=== PATIENT | male | born 1955 | race Caucasian/White ===

== ENCOUNTER → 2017-07-24 12:38 | Outpatient (CLI) | payer OTHER, SELFPAY | PROVIDERS: PCP Family Medicine; Visit Provider Family Medicine | DX: K21.9 Gastro-esophageal reflux disease without esophagitis (principal); Z53.8 Procedure and treatment not carried out for other reasons ==

== ENCOUNTER → 2017-07-25 07:48 | Outpatient (CLI) | payer OTHER, SELFPAY ==
--- NOTE | 2017-07-25 | DI.RAD.S_ITS ---
PROCEDURE: FL UPPER GI W AIR INDICATIONS: Reflux COMPARISON: [facility], , UPPER GI AIR CONTRAST WITH KUB, 12/19/2008, 8:58. 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 No suspicious abdominal calcifications. Visualized solid organ contours appear normal. Bony structures appear unremarkable. Esophagus: Esophageal mucosa is normal on air-contrast views. On single-contrast views, there is normal esophageal peristalsis. No strictures, extrinsic mass effects, or diverticula. Slight sliding hiatal hernia was identified and there was only a slight degree of elicited gastroesophageal reflux. Stomach: The stomach is normally distensible, with normal rugal fold thickness. No mucosal masses or ulcers. Pylorus and duodenal bulb appear normal in morphology. Duodenal folds are normal in thickness as well. IMPRESSION: Slight sliding hiatal hernia with a very small associated amount of gastroesophageal reflux. No mass or stricture found, no esophageal dysmotility identified. Dictated by: Bull Perez M.D. on 07/25/2017 at 9:12 Approved by: Bull Perez M.D. on 07/25/2017 at 9:13
== END ==
PROVIDERS: PCP Family Medicine; Visit Provider Family Medicine
DX: K21.9 Gastro-esophageal reflux disease without esophagitis (principal); K44.9 Diaphragmatic hernia without obstruction or gangrene
CPT/HCPCS: 74247

== ENCOUNTER 2018-12-24 12:49 | Day surgery (SDC) | payer OTHER, SELFPAY ==
--- NOTE | 2018-12-24 | PATH_ITS ---
[facility] Accession Number: [id number] . 01 Material submitted: . colon - DESCENDING COLON POLYP BIOPSY 6MM . 02 Diagnosis: Descending Colon Polyp, 6 mm, Biopsy: Tubular adenoma. MRV 12/25/2018 1546 Local . 02 Electronically signed: . Randy Townsend MD, PhD, Pathologist NPI- [id number] . 01 Gross description: . DESCENDING COLON POLYP BIOPSY 6MM: Received in formalin is 1 fragment(s) of anthony, soft tissue measuring 0.3 x 0.3 x 0.2 cm which is entirely submitted and submitted entirely in 1 cassette(s) /[facility] 12/25/2018 0026 Local . 02 Pathologist provided ICD-10: D12.4 . 02 CPT . 379783 Performed at: 01 [facility] [address] [id number] MD Kashif Manuel MD Phone: [phone] Performed at: [address] [facility] [address] [place], [place] [id number] MD Waleska Blackwell MD Phone: [phone]
[2018-12-24 13:07] VITALS: BP 147/90; PULSE 76; RESP 18; TEMP 36.2; O2SAT 98; BMI 24.3
[2018-12-24] MEDS: SODIUM CHLORIDE 0.9% 1,000 ML 200 ML IV (13:24)
--- NOTE | 2018-12-24 13:57 | PM.PREOP ---
Pre-operative Note Interval Note History & Physical reviewed/Exam performed by Physician: Yes Changes to H&P: No ASA Class (for procedural sedation): II
--- NOTE | 2018-12-24 13:57 | PM.OP.ENDO ---
Operative Date/Time/Diagnoses Date of procedure: 12/24/18 Time of procedure: 13:57 Pre-op diagnosis: 1. Screening for colon cancer Post-op diagnosis: other (Descending polyp x1, 6 mm, removed with cold biopsy forceps, minor diverticulosis) Procedure & Clinicians Study performed: Colonoscopy Same procedure as scheduled: Yes Indications: 1. Screening for colon cancer Surgeon: Noemi Blancas Procedure Notes SCOAP/Timeout: 14:11 Procedure in detail: ENDOSCOPIST: Noemi Blancas MD Sedation RN: Juan Carlos Bell RN Sedation start time: 14:12 Sedation end time: 14:52 PROCEDURE: Colonoscopy with biopsy INDICATIONS: 1. Screening for colon cancer MEDICATION: Levsin 0.125 mg sublingual, incremental doses of Versed and fentanyl until appropriate level sedation achieved. ASA CLASS: 2 CECAL WITHDRAWAL TIME: 18 minutes COMPLICATIONS: None. EXTENT OF PROCEDURE: Cecum. QUALITY OF PREP: Good with portions of liquid stool. PROCEDURE: Prior to insertion of the colonoscope, a digital rectal examination was accomplished with circumferential palpation of the distal rectal mucosa without significant findings being noted. The high-definition colonoscope was passed into the rectum in the usual fashion and advanced over to the cecum without difficulty. The ileocecal valve, appendiceal stoma, and medial wall all could be inspected and no abnormalities were seen. ASCENDING COLON: As the colonoscope was withdrawn, care was taken to expose and inspect the haustral folds and no abnormalities were seen. HEPATIC FLEXURE: Normal no polyps, diverticula or other abnormalities. TRANSVERSE COLON: Normal no polyps, diverticula or other abnormalities. DESCENDING COLON: A 6 mm polyp was seen and removed with cold biopsy forceps, excellent hemostasis. Very minor diverticulosis. Otherwise, no other abnormalities. SIGMOID COLON: Minor diverticulosis, otherwise normal, no polyps or other abnormalities. RECTUM: Normal. J maneuver was produced. There was no significant perianal disease. The J maneuver was broken. The remainder of the rectum was inspected and there was no external hemorrhoid disease. The scope was withdrawn. IMPRESSION: 1. Descending polyp x1, 6 mm, removed with cold biopsy forceps 2. Minor diverticulosis, left-sided PLAN: 1. Follow-up in clinic status post pathology results. The possibility of a missed lesion including a malignancy has been discussed with the patient previously. Potential alarm symptoms have been discussed and should be reported immediately. Scope withdrawal time: 18 Sedation minutes: 40 Findings: diverticulosis and polyp Specimen(s): other Complications: none Impression: As above. Post-procedure Recommendations: Will call with biopsy results Follow up: weeks (2) Disposition: PACU
[2018-12-24] MEDS: HYOSCYAMINE 0.125 MG TABLET PO (14:10)
[2018-12-24] MEDS: MIDAZOLAM 5 MG/5 ML VIAL 10 MG IV (14:35)
[2018-12-24] MEDS: fentaNYL 250 MCG/5 ML INJ IV (14:36)
[2018-12-24 14:59] VITALS: BP 122/83; PULSE 77; RESP 12; TEMP 36.5; O2SAT 96
[2018-12-24 15:04] VITALS: BP 137/84; PULSE 74; RESP 18; O2SAT 96
[2018-12-24 15:09] VITALS: BP 120/91; PULSE 75; RESP 16; O2SAT 98
[2018-12-24 15:14] VITALS: BP 127/87; PULSE 76; RESP 15; O2SAT 95
[2018-12-24 15:21] VITALS: BP 124/79; PULSE 68; RESP 16; TEMP 36.4; O2SAT 98
== END 2018-12-24 15:56 | disposition home or self-care (01) ==
PROVIDERS: PCP Family Medicine; Visit Provider Student in an Organized Health Care Education/Training Program
PROC: 0DJD8ZZ Inspection of Lower Intestinal Tract, Via Natural or Artificial Opening Endoscopic (ICD-10-PCS; CPT 45378; principal; 2018-12-24 14:00)
DX: Z12.11 Encounter for screening for malignant neoplasm of colon (principal); D12.4 Benign neoplasm of descending colon; K57.30 Diverticulosis of large intestine without perforation or abscess without bleeding
CPT/HCPCS: 45380; J2250; J3010

== ENCOUNTER → 2019-09-05 09:21 | Outpatient (CLI) | payer OTHER, SELFPAY ==
[2019-09-05 10:11] LABS: Add Manual Diff / Slide Review NO; Basophils Absolute Auto 100 /uL (0-100); Basophils Percent Auto 1.7 % (0-2); Eosinophils Absolute Auto 100 /uL (0-450); Eosinophils Percent Auto 2.5 % (2-4); Hematocrit 48.2 % (41-53); Hemoglobin 16.2 g/dL (13.5-17.5); Lymphocytes Absolute Auto 900 /uL (1100-4500); Lymphocytes Percent Auto 19.8 % (25-40); Mean Corpuscular HGB Conc 33.7 % (30-36); Mean Corpuscular Hemoglobin 30.6 PG (26-34); Mean Corpuscular Volume 90.8 fL (80-100); Monocytes Absolute Auto 600 /uL (0-900); Neutrophils Absolute Auto 2800 /uL (1500-7000); Platelet Count 219 X10^3/uL (150-400); Red Cell Distribution Width 14.4 % (11.6-14.8); White Blood Cell Count 4.4 X10^3/uL (4.5-11.0)
[2019-09-05 10:27] LABS: Alanine Aminotransferase 12 IU/L (<50); Albumin 4.2 g/dL (3.5-5.0); Albumin Globulin Ratio 1.9 (1.0-2.8); Alkaline Phosphatase 46 U/L (38-126); Aspartate Aminotransferase 26 IU/L (17-59); BUN Creatinine Ratio 15.4 (6-22); Bilirubin Total 0.8 mg/dL (0.2-1.3); Blood Urea Nitrogen 19 mg/dL (9-20); Calcium 10.3 mg/dL (8.4-10.2); Carbon Dioxide 32 mmol/L (22-32); Chloride 100 mmol/L (98-107); Cholesterol 216 mg/dL (140-199); Estimated Glomerular Filt Rate 59.4 mL/min (>60); Globulin 2.2 g/dL (1.7-4.1); Glucose 77 mg/dL (80-110); HDL Cholesterol 80 mg/dL (40-60); HEMOLYSIS < 15 (0-50); LDL Cholesterol Calculated 125 mg/dL (<100); Potassium 4.7 mmol/L (3.4-5.1); Sodium 137 mmol/L (137-145); Total Protein 6.4 g/dL (6.3-8.2); Triglycerides 54 mg/dL (35-150)
== END ==
PROVIDERS: PCP Family Medicine; Referring Provider Family Medicine; Visit Provider Family Medicine
DX: I10 Essential (primary) hypertension (principal); G35 Multiple sclerosis; Z79.899 Other long term (current) drug therapy
CPT/HCPCS: 36415; 80053; 80061; 85025

== ENCOUNTER → 2019-09-16 11:45 | Outpatient (CLI) | payer OTHER, SELFPAY ==
--- NOTE | 2019-09-16 | DI.RAD.S_ITS ---
PROCEDURE: XR CHEST 2V INDICATIONS: Dyspnea, hx of Wegners, lung nodule TECHNIQUE: 2 views of the chest were acquired. COMPARISON: [place], PET/CT NECK TO MID THIGH, 12/10/2010, 9:01. [facility], , CHEST 2 VIEW, 11/25/2010, 12:35. [facility], , CHEST 2 VIEW, 02/03/2009, 15:08. [facility], , CHEST 2 VIEW, 12/15/2010, 12:43. FINDINGS: Surgical changes and devices: None. Lungs and pleura: Lungs are clear, aside from left upper lobe anterior pulmonary nodule which appears unchanged. No pleural effusions or pneumothorax. Mediastinum: Mediastinal contours are normal. Heart size is normal. Bones and chest wall: No suspicious bony abnormalities. Soft tissues appear unremarkable. IMPRESSION: 1. Stable appearance of left anterior upper lobe pulmonary nodule compared to prior examinations and also the PET scan performed on 12/10/2010 which did not show malignant appearing isotope uptake. 2. No source for dyspnea identified. Consider further evaluation with CT of the chest. Dictated by: Arun Elizabeth [facility] Interpreted: Unruly Feliz MD on 09/16/2019 at 12:09 Approved by: Unruly Feliz M.D. on 09/16/2019 at 13:46
== END ==
PROVIDERS: PCP Family Medicine; Referring Provider Family Medicine; Visit Provider Family Medicine
DX: R91.1 Solitary pulmonary nodule (principal); R06.00 Dyspnea, unspecified; M31.30 Wegener's granulomatosis without renal involvement
CPT/HCPCS: 71046

== ENCOUNTER → 2019-12-05 09:38 | Outpatient (CLI) | payer OTHER, SELFPAY ==
--- NOTE | 2019-12-05 | DI.CT.S_ITS ---
PROCEDURE: CT CHEST WO CON INDICATIONS: Wengers, lung nodule TECHNIQUE: Noncontrast 2.0-2.5 mm thick sections acquired from the pulmonary apices to the posterior costophrenic angles. 7 mm thick axial MIP and 5 mm coronal and sagittal reformats were then acquired. A low radiation dose technique was utilized. COMPARISON: [facility], , XR CHEST 2V, 09/16/2019, 11:42. [place], [place], PET/CT NECK TO MID THIGH, 12/10/2010, 9:01. CT, PE STUDY (CTA CHEST), 12/01/2010, 7:46. FINDINGS: Image quality: Diagnostic, given the low radiation dose technique. Lungs and pleura: There is a 1.2 x 1.5 cm lobulated nodule in the anterior segment of the left upper lobe, demonstrating slight interval enlargement (previously 0.9 x 1.2 cm on 12/01/2010). A 5 mm subpleural nodule in the right upper lobe and a 5 mm nodule in the right major fissure are both unchanged. There is a calcified nodule in the left lung base laterally. There is mild centrilobular emphysema. Mild bilateral subpleural septal thickening. Mediastinum: Heart size is normal. No pericardial effusion. Mild coronary artery calcification. No mediastinal adenopathy by size criteria. Thoracic aorta and central pulmonary arteries are normal in size. Esophagus is normal in caliber. No hiatal hernia. Bones and chest wall: No suspicious bony lesions. No vertebral body compression fractures. No axillary or supraclavicular adenopathy by size criteria. Thyroid gland is normal. Abdomen: A cluster of calcific densities are noted in the right hepatic lobe, new since the prior exams. Visualized upper abdomen solid organs and bowel loops appear normal in the absence of contrast. IMPRESSION: 1. Slight interval enlargement of a lobulated nodule in the anterior left upper lobe no measuring 1.2 x 1.5 cm, previously the nodule measured 0.9 x 1.2 cm on 12/01/2010. Slow enlargement of the nodule suggests benign etiology. This nodule was previously evaluated by FDG PET and showed no increased FDG uptake. 2. Multiple small subcentimeter lung nodules are stable. 3. Mild centrilobular emphysema. 4. Mild subpleural interstitial thickening. Fleischner Society criteria for SOLID lung nodule followup. Nodule size (mm)Low-risk patientHigh-risk patient<6 (single or multiple)No routine followup.Optional CT at 12 months. 6-8 (single or multiple)CT at 6-12 months, then optional CT at 18-24 mo.CT at 6-12 months, then CT at 18-24 months. >8 (single)CT at 3 months, PET-CT, or biopsy. Same as for low-risk pts. >8 (multiple)CT at 3-6 months, then optional CT at 18-24 mo.CT at 3-6 months, then CT at 18-24 months. Fleischner Society criteria for SUB-SOLID lung nodule followup. Solitary pure ground-glass nodules<6 mm (ground glass or part solid)No followup needed. 6 mm or larger (ground glass)CT at 6-12 months to confirm persistence, then CT every 2 years until 5 years.6 mm or larger (part solid)CT at 3-6 months to confirm persistence, then annual CT until 5 years if unchanged and solid component remains <6 mm. Multiple sub-solid nodules<6 mmCT at 3-6 months, then CT consider at 2 & 4 years for high risk patients. [address] at 3-6 months. Subsequent management based on most suspicious lesions. Recommendations do not apply to lung cancer screening, patients with immunosuppression, or patients with known primary cancer. Dictated by: Shanon Baker M.D. on 12/05/2019 at 16:55 Approved by: Shanon Baker M.D. on 12/05/2019 at 17:07
== END ==
PROVIDERS: PCP Family Medicine; Referring Provider Family Medicine; Visit Provider Family Medicine
DX: R91.8 Other nonspecific abnormal finding of lung field (principal); M31.30 Wegener's granulomatosis without renal involvement; J43.2 Centrilobular emphysema; I25.10 Atherosclerotic heart disease of native coronary artery without angina pectoris
CPT/HCPCS: 71250

== ENCOUNTER → 2022-01-20 16:42 | Outpatient (CLI) | payer MEDICARE, OTHER, SELFPAY ==
--- NOTE | 2022-01-20 16:45 | DI.MRI.S_ITS ---
PROCEDURE: MR HEAD/BRAIN WO CON INDICATIONS: Transient cerebral ischemic attack, unspecified TECHNIQUE: Non-contrast axial T1 spin echo, axial T2 fast spin echo, sagittal and axial FLAIR, coronal T2 fast spin echo, axial gradient echo, axial diffusion and ADC through the brain. COMPARISON: None. FINDINGS: Image quality: Excellent. CSF spaces: Ventricles appear symmetric in size and shape. Basal cisterns are patent. No extra-axial fluid collections. Brain: No intracranial bleeds or mass effects. There is cerebral volume loss for age. There are periventricular and deep white matter chronic small vessel ischemic changes. Brainstem appears normal. Diffusion-weighted images show no acute ischemic insults. There is a focal 5 mm cystic lesion seen involving left thalamus, as on series 8 image 14, which is attributed to a remote infarction. Normal intravascular flow voids are present. Skull and face: Calvarial bone marrow is normal in signal. Orbits are normal. Note is made of bilateral lens replacements. Sinuses: Sinuses and mastoids are clear. IMPRESSION: No findings of acute or subacute infarction can be seen. Note is made of age-appropriate brain parenchymal volume loss and chronic small vessel ischemic changes. 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 Dictated by: Chencho Orlando M.D. on 01/21/2022 at 8:57 Approved by: Chencho Orlando M.D. on 01/21/2022 at 8:59
== END ==
PROVIDERS: PCP Family Medicine; Referring Provider Family Medicine; Visit Provider Family Medicine
DX: G45.9 Transient cerebral ischemic attack, unspecified (principal); R47.01 Aphasia
CPT/HCPCS: 70551